=== PATIENT | male | born 1955 | race Caucasian/White ===

== ENCOUNTER 2018-04-22 13:50 | Emergency (ER) | payer BC, OTHER ==
[2018-04-22] MEDS ORDERED: SILVER SULFADIAZINE 1 % 25 GM TUBE TOP ONE ×3 (13:51→14:31)
[2018-04-22] MEDS ORDERED: MORPHINE SULFATE INJ 10 MG/ML VIAL ONE (14:01)
[2018-04-22] MEDS ORDERED: MORPHINE SULFATE INJ 10 MG/ML VIAL IV ONE (14:01)
[2018-04-22] MEDS ORDERED: TETANUS,DIPHTHERIA,PERTUSSIS 1 EA SYG IM ONE (14:01)
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
[2018-04-22 16:27] VITALS: BP 146/80; TEMP 98.6; O2SAT 98
== END 2018-04-22 16:05 | disposition home or self-care (01) ==
LOC: ER 13:50
DX: T22.212A Burn of second degree of left forearm, initial encounter (principal); T23.242A Burn of second degree of multiple left fingers (nail), including thumb, initial encounter; T21.22XA Burn of second degree of abdominal wall, initial encounter; T20.22XA Burn of second degree of lip(s), initial encounter; T31.0 Burns involving less than 10% of body surface; S51.012A Laceration without foreign body of left elbow, initial encounter; X01.0XXA Exposure to flames in uncontrolled fire, not in building or structure, initial encounter; Y93.89 Activity, other specified
CPT/HCPCS: 36600; 71045; 82803; 82805; 90471; 90715; J2270